=== PATIENT | female | born 1960 | race African-American/Black ===

== ENCOUNTER 2019-03-01 09:06 | Emergency (ER) | payer OTHER ==
[~2019-03-01] VITALS: Ht 167.6 cm; Wt 110.0 kg
[2019-03-01 11:07] VITALS: BP 137/82
== END 2019-03-01 11:09 | disposition home or self-care (01) ==
LOC: ER 09:20
DX: H11.32 Conjunctival hemorrhage, left eye (principal); I10 Essential (primary) hypertension; Z90.710 Acquired absence of both cervix and uterus
CPT/HCPCS: 99283